=== PATIENT | female | born 1940 | race African-American/Black ===

== ENCOUNTER 2023-02-14 15:22 | Inpatient (IN) | payer OTHER ==
[~2023-02-14] VITALS: Ht 170.2 cm; Wt 72.4 kg
[2023-02-14 15:57] LABS: BASOPHILS % 0.6 % (0.0-2.0); EOSINOPHILS % 0.9 % (0.0-5.0); HEMATOCRIT. 46.8 % (36.0-48.0); HEMOGLOBIN. 15.1 g/dL (12.0-16.0); LYMPHOCYTES % 25.4 % (20.0-50.0); MEAN CORPUSCULAR HEMOGLOBIN 30.3 pg (28.0-32.0); MEAN CORPUSCULAR VOLUME 93.7 fL (81.0-99.0); MEAN PLATELET VOLUME 11.5 fl (7.4-10.4); MONOCYTES % 11.3 % (2.0-8.0); NEUTROPHILS % 61.8 % (40.0-76.0); PLATELET 133 x1000/uL (130-400); RED CELL DISTRIBUTION WIDTH 17.3 % (11.6-14.6)
[2023-02-14 16:03] LABS: CHLORIDE 110 mEq/L (98-107)
[2023-02-14] MEDS ORDERED: FUROSEMIDE 40MG/4ML VIAL IV ONE (17:00)
[2023-02-14] MEDS ORDERED: ASPIRIN 81MG TABLET PO ONE (17:00)
[2023-02-14] MEDS ORDERED: BISO5TAB13 MT (22:33)
[2023-02-14] MEDS ORDERED: APIX5TAB PO (22:34)
[2023-02-14] MEDS ORDERED: ATOR20TA MT (22:34)
[2023-02-15] VITALS (7 sets, daily range): BP systolic 132–148; BP diastolic 52–98
[2023-02-15] MEDS ORDERED: METOPROLOL TARTRATE 50MG TABLET PO NR (00:45)
[2023-02-15] MEDS ORDERED: POTASSIUM CHLORIDE 20MEQ TABLET SR PO NR (00:45)
[2023-02-15] MEDS ORDERED: ACETAMINOPHEN 325MG TABLET PO PRN (01:00)
[2023-02-15] MEDS: FUROSEMIDE 40MG/4ML VIAL IVP SCH ×4 (05:26→21:30)
[2023-02-15 05:57] LABS: BASOPHILS % 0.5 % (0.0-2.0); EOSINOPHILS % 1.3 % (0.0-5.0); HEMATOCRIT. 43.3 % (36.0-48.0); HEMOGLOBIN. 14.2 g/dL (12.0-16.0); LYMPHOCYTES % 22.3 % (20.0-50.0); MEAN CORPUSCULAR HEMOGLOBIN 30.8 pg (28.0-32.0); MEAN CORPUSCULAR VOLUME 93.6 fL (81.0-99.0); MONOCYTES % 12.3 % (2.0-8.0); NEUTROPHILS % 63.6 % (40.0-76.0); PLATELET 120 x1000/uL (130-400); RED BLOOD CELL COUNT 4.62 mill/uL (4.2-5.4); RED CELL DISTRIBUTION WIDTH 16.8 % (11.6-14.6)
[2023-02-15 07:49] LABS: T4 FREE 1.55 ng/dL (0.76-1.46)
[2023-02-15] MEDS: POTASSIUM CHLORIDE 20MEQ TABLET SR PO SCH (08:34)
[2023-02-15] MEDS: APIXABAN 2.5 MG TABLET PO SCH ×2 (08:34→17:08)
[2023-02-15] MEDS: METOPROLOL TARTRATE 50MG TABLET PO SCH ×2 (08:35→21:14)
[2023-02-15] MEDS: LOSARTAN POTASSIUM 50 MG TABLET PO SCH (08:35)
[2023-02-15] MEDS: ATORVASTATIN CALCIUM 20MG TABLET PO SCH (08:35)
[2023-02-15] MEDS: PANTOPRAZOLE 40MG DR TABLET PO SCH (08:35)
[2023-02-15] MEDS ORDERED: APIXABAN 5 MG TABLET PO SCH (09:00)
[2023-02-15] MEDS ORDERED: ATORVASTATIN CALCIUM 20MG TABLET PO SCH (21:00)
[2023-02-16] VITALS: BP 132/72
[2023-02-16 04:00] VITALS: BP 150/75
[2023-02-16] MEDS: FUROSEMIDE 40MG/4ML VIAL IVP SCH ×3 (05:04→22:16)
[2023-02-16 07:52] VITALS: BP 130/55
[2023-02-16] MEDS: LOSARTAN POTASSIUM 50 MG TABLET PO SCH (09:01)
[2023-02-16] MEDS: POTASSIUM CHLORIDE 20MEQ TABLET SR PO SCH (09:01)
[2023-02-16] MEDS: PANTOPRAZOLE 40MG DR TABLET PO SCH (09:01)
[2023-02-16] MEDS: METOPROLOL TARTRATE 50MG TABLET PO SCH ×2 (09:01→21:00)
[2023-02-16] MEDS: APIXABAN 2.5 MG TABLET PO SCH (09:01)
[2023-02-16] MEDS: ATORVASTATIN CALCIUM 20MG TABLET PO SCH ×2 (09:01→21:24)
[2023-02-16 11:42] VITALS: BP 127/68
[2023-02-16 16:04] VITALS: BP 112/55
[2023-02-16] MEDS: APIXABAN 5 MG TABLET PO SCH (16:57)
[2023-02-16 20:00] VITALS: BP 108/62
[2023-02-17] VITALS: BP 112/65
[2023-02-17 04:00] VITALS: BP 102/54
[2023-02-17] MEDS: FUROSEMIDE 40MG/4ML VIAL IVP SCH ×3 (06:10→21:07)
[2023-02-17 08:00] VITALS: BP 97/58
[2023-02-17] MEDS: LOSARTAN POTASSIUM 50 MG TABLET PO SCH (09:00)
[2023-02-17] MEDS: METOPROLOL TARTRATE 50MG TABLET PO SCH ×2 (09:00→20:01)
[2023-02-17] MEDS: FAMOTIDINE 20MG TABLET PO SCH (09:53)
[2023-02-17] MEDS: APIXABAN 5 MG TABLET PO SCH ×2 (09:53→18:03)
[2023-02-17] MEDS: POTASSIUM CHLORIDE 20MEQ TABLET SR PO SCH (09:54)
[2023-02-17 12:00] VITALS: BP 99/61
[2023-02-17 16:00] VITALS: BP 132/75
[2023-02-17 20:00] VITALS: BP 112/71
[2023-02-17] MEDS: ATORVASTATIN CALCIUM 20MG TABLET PO SCH (21:07)
[2023-02-18] VITALS (7 sets, daily range): BP systolic 109–149; BP diastolic 50–69
[2023-02-18] MEDS: FUROSEMIDE 40MG/4ML VIAL IVP SCH ×2 (05:14→14:23)
[2023-02-18] MEDS: APIXABAN 5 MG TABLET PO SCH ×2 (09:16→16:11)
[2023-02-18] MEDS: FAMOTIDINE 20MG TABLET PO SCH (09:16)
[2023-02-18] MEDS: LOSARTAN POTASSIUM 50 MG TABLET PO SCH (09:16)
[2023-02-18] MEDS: POTASSIUM CHLORIDE 20MEQ TABLET SR PO SCH (09:16)
[2023-02-18] MEDS: METOPROLOL TARTRATE 50MG TABLET PO SCH (09:17)
== END 2023-02-18 21:00 | disposition home or self-care (01) | DRG 291 ==
LOC: ER 15:22 → EDBEDREQ 17:02 → EDBEDREQTM 17:02 → MICUSO 18:29 → EDBEDREQ 18:33 → EDBEDREQTM 18:33 → 7WST 23:44
PROVIDERS: ADMIT Internal Medicine; ATTEND Internal Medicine
DX: I13.0 Hypertensive heart and chronic kidney disease with heart failure and stage 1 through stage 4 chronic kidney disease, or unspecified chronic kidney disease (principal); I50.43 Acute on chronic combined systolic (congestive) and diastolic (congestive) heart failure; J96.01 Acute respiratory failure with hypoxia; I82.402 Acute embolism and thrombosis of unspecified deep veins of left lower extremity; I48.20 Chronic atrial fibrillation, unspecified; N17.9 Acute kidney failure, unspecified; Z20.822 Contact with and (suspected) exposure to COVID-19; N18.9 Chronic kidney disease, unspecified; I16.0 Hypertensive urgency; Z86.73 Personal history of transient ischemic attack (TIA), and cerebral infarction without residual deficits
CPT/HCPCS: 36415; 71045; 78582; 80048; 80053; 80061; 83880; 84439; 84443; 84484; 85025; 87426; 93005; 93306; 93970; 97162; 99285; C9803; J1940